=== PATIENT | female | born 1975 | race Caucasian/White ===

== ENCOUNTER 2018-01-02 18:26 | Emergency (ER) | payer OTHER ==
--- NOTE | 2018-01-02 18:46 | ED Physician Documentation ---
PD HPI HEENT - Stated complaint Stated Complaint: LT EAR/FACE PX - History obtained from History obtained from: Patient - History of Present Illness Timing - onset: How many days ago (few days of left face and ear pain, now with some rash on face.) Timing - duration: Days Timing - details: Gradual onset Location: Left ear, Other (left side of face, left side of tongue.) Worsens: Swalllowing, Other (touching) Associated symptoms: Facial swelling. No: Fever, Congestion, Headache Similar symptoms before: Has not had sx before Recently seen: Clinic ( care 2 weeks ago) Review of Systems Constitutional: denies: Fever, Chills Ears: reports: Ear pain Nose: denies: Rhinorrhea / runny nose, Congestion Throat: denies: Sore throat (but is sore on left side of tongue) Cardiac: denies: Chest pain / pressure Respiratory: denies: Dyspnea GI: denies: Nausea, Vomiting Skin: reports: Rash (onface). denies: Lesions PD PAST MEDICAL HISTORY - Past Medical History Cardiovascular: None Respiratory: None Neuro: None - Present Medications Home Medications: Ambulatory Orders Medication Instructions Recorded Confirmed Acyclovir 800 mg PO 5XD #25 tablet 01/02/18 Dexamethasone [Decadron] 4 mg PO DAILY #5 tablet 01/02/18 Gabapentin [Neurontin] 100 mg PO BID #20 capsule 01/02/18 HYDROcod/ACETAM 5/325 [[place] 5/325] 1 tab PO Q6H PRN #15 tablet 01/02/18 Levothyroxine Sodium [Synthroid] 1 tab PO DAILY 01/02/18 01/02/18 Lidocaine Ointment 5% [Xylocaine 1 applic TOP QID #1 tube 01/02/18 Ointment 5%] - Allergies Allergies/Adverse Reactions: Allergies Allergy/AdvReac Type Severity Reaction Status Date / Time No Known Drug Allergies Allergy Verified 01/02/18 18:33 PD ED PE NORMAL - Vitals Vital signs reviewed: Yes - General General: Alert and oriented X 3, No acute distress, Well developed/nourished - HEENT HEENT: Moist mucous membranes, Pharynx benign (but left back side of tongue with some blistering/redness. ). No: Ears normal (TM is normal but canal with few blistered red lesions. Left face with couple small patches of blistered rash. Very tender. C/w Shingles. ) - Neck Neck: Supple, no meningeal sign, No adenopathy Results - Vitals Vitals: Oxygen O2 Source Room air PD MEDICAL DECISION MAKING - ED course Complexity details: considered differential, d/w patient Departure - Departure Disposition: 01 Home, Self Care Clinical Impression: Shingles rash Qualifiers: Herpes zoster complications: without complications Qualified Code(s): B02.9 - Zoster without complications Qualifiers: Weeks of gestation: 34 weeks Qualified Code(s): Z3A.34 - 34 weeks gestation of Condition: Stable Record reviewed to determine appropriate education?: Yes Instructions: ED Shingles Follow-Up: VANESA Parry [Provider Group] Prescriptions: Acyclovir 800 mg PO 5XD #25 tablet Dexamethasone [Decadron] 4 mg PO DAILY #5 tablet Gabapentin [Neurontin] 100 mg PO BID #20 capsule HYDROcod/ACETAM 5/325 [[place] 5/325] 1 tab PO Q6H PRN #15 tablet PRN Reason: Pain Lidocaine Ointment 5% [Xylocaine Ointment 5%] 1 applic TOP QID #1 tube Comments: He can use lidocaine ointment to the facial sores to help topically. Tylenol if needed for pains. Add hydrocodone if needed for worse pain. To decrease the shingles virus and nerve inflammation, take the acyclovir 5 times a day for the next 5 days and Decadron steroid 5 daily for the next 5 days. Also use gabapentin twice daily at a low dose 100 mg to decrease the nerve irritation. Follow-up with your [employer]EL[employer] next week, call for an appointment. I talked with our on-call [employer]ELOPER just to verify the medication plan. Discharge Date/Time: 01/02/18 20:12
[2018-01-02] MEDS ORDERED: ACYCLOVIR 200 MG CAPSULE PO STA (19:11)
[2018-01-02] MEDS ORDERED: GABAPENTIN 100 MG CAPSULE PO STA (19:11)
[2018-01-02] MEDS ORDERED: DEXAMETHASONE 10 MG/ML VIAL PO STA (19:11)
[2018-01-02] MEDS ORDERED: HYDROcod/ACETAM 5/325 MG TABLET PO STA (19:13)
[2018-01-02 20:12] VITALS: BP 105/60
== END 2018-01-02 20:12 | disposition home or self-care (01) ==
LOC: ED 18:26
DX: O26.893 Other specified pregnancy related conditions, third trimester (principal); B02.9 Zoster without complications; Z3A.34 34 weeks gestation of pregnancy
CPT/HCPCS: 87252; 99283; A9270; 81599

== ENCOUNTER 2018-01-05 12:26 | Emergency (ER) | payer OTHER ==
--- NOTE | 2018-01-05 13:58 | ED Physician Documentation ---
PD HPI SKIN - Stated complaint Stated Complaint: RASH ON FACE/35 WKS PREG - Chief complaint Chief Complaint: Wound - History obtained from History obtained from: Patient - History of Present Illness Timing - onset: How many weeks ago (1) Timing - duration: Weeks (1) Timing - details: Still present (has had pain on face for a week and started rash 5 days ago or so, with Dx of shingles in ER. Has been on meds for it and says the pain and rash are still increasing. No feeling of it in eye. Able to drink fluids though tongue hurts.) Review of Systems Constitutional: reports: Myalgias. denies: Fever, Chills Eyes: denies: Photophobia, Discharge, Irritation Ears: reports: Ear pain (left) Nose: denies: Rhinorrhea / runny nose, Congestion Throat: reports: Oral lesions / sores (left side of tongue with sores) Cardiac: denies: Chest pain / pressure, Palpitations Respiratory: denies: Dyspnea, Cough GI: reports: Nausea. denies: Abdominal Pain, Vomiting, Diarrhea : reports: Other (having good movements.). 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 - Present Medications Home Medications: Ambulatory Orders Medication Instructions Recorded Confirmed Acyclovir 800 mg PO 5XD #25 tablet 01/02/18 Dexamethasone [Decadron] 4 mg PO DAILY #5 tablet 01/02/18 Gabapentin [Neurontin] 100 mg PO BID #20 capsule 01/02/18 HYDROcod/ACETAM 5/325 [[place] 5/325] 1 tab PO Q6H PRN #15 tablet 01/02/18 Levothyroxine Sodium [Synthroid] 1 tab PO DAILY 01/02/18 01/02/18 Lidocaine Ointment 5% [Xylocaine 1 applic TOP QID #1 tube 01/02/18 Ointment 5%] HYDROcod/ACETAM 5/325 [[place] 5/325] 1 tab PO Q6H PRN #20 tablet 01/05/18 - Allergies Allergies/Adverse Reactions: Allergies Allergy/AdvReac Type Severity Reaction Status Date / Time No Known Drug Allergies Allergy Verified 01/02/18 18:33 - Social History Does the pt smoke?: No Smoking Status: Never smoker Does the pt drink ETOH?: No Does the pt have substance abuse?: No - Immunizations Immunizations are current?: Yes - POLST Patient has POLST: No PD ED PE NORMAL - Vitals Vital signs reviewed: Yes - General General: Alert and oriented X 3, Well developed/nourished, Other (appears uncomfortable due to face pain.) - HEENT HEENT: Dentition benign, Other (left side of tongue with similar lesions as prior exam. Rest of mouth normal. ) - Neck Neck: Supple, no meningeal sign, No adenopathy - Cardiac Cardiac: RRR, No murmur - Respiratory Respiratory: Clear bilaterally - Abdomen Abdomen: Soft, Non tender, Other (gravid with fundus between umbilicus and xyphoid c/w dates. ) - Derm Derm: Normal color, Warm and dry, Other (shingles rash without signs of secondary infection on left face mandible and cheek but also small patch left eyebrow area. Some tenderness of forehead without rash there. Left ear canal with some lesions. TM is okay. ) - Neuro Neuro: Alert and oriented X 3, papier mache' molder 2-12 intact, No motor deficit, No sensory deficit, Normal speech Eye Opening: Spontaneous Motor: Obeys Commands Verbal: Oriented GCS Score: 15 - Psych Psych: Normal mood Results - Vitals Vitals: Vital Signs - 24 hr 01/05/18 01/05/18 12:35 14:37 Temperature 36.5 C 37.0 C Heart Rate 80 68 Respiratory 20 20 Rate Blood Pressure 127/57 L 100/70 O2 Saturation 98 95 Oxygen O2 Source Room air Departure - Departure Disposition: 01 Home, Self Care Clinical Impression: Qualifiers: Weeks of gestation: 35 weeks Qualified Code(s): Z3A.35 - 35 weeks gestation of Shingles rash Qualifiers: Herpes zoster complications: without complications Qualified Code(s): B02.9 - Zoster without complications Condition: Stable Record reviewed to determine appropriate education?: Yes Instructions: ED Shingles Follow-Up: CATARINO BARNES PA-C [Primary Care Provider] - Prescriptions: HYDROcod/ACETAM 5/325 [[place] 5/325] 1 tab PO Q6H PRN #20 tablet PRN Reason: Pain Comments: You can use the proparacaine numbing drops in the ear periodically if needed. He can use the lidocaine ointment on the face and see if that helps. Continue the other prescriptions for the antiviral and steroid and nerve medication gabapentin. You can increase the frequency of the hydrocodone to every 3-4 hours if needed for pain in the short-term until your follow-up on Friday. If the dose is not adequate you can go to 1-1/2 tablets every 4 hours if needed. Be aware of continued movement as an indication of sedation for the baby. Discharge Date/Time: 01/05/18 14:55
[2018-01-05] MEDS ORDERED: HYDROcod/ACETAM 5/325 MG TABLET PO STA (14:16)
[2018-01-05] MEDS ORDERED: PROPARACAINE 0.5% OPHTH DROPS 15 ML LEFTEYE STA (14:16)
[2018-01-05 14:38] VITALS: BP 100/70
== END 2018-01-05 14:55 | disposition home or self-care (01) ==
LOC: ED 12:26
DX: O26.893 Other specified pregnancy related conditions, third trimester (principal); B02.9 Zoster without complications; Z3A.35 35 weeks gestation of pregnancy
CPT/HCPCS: 99283; A9270; J3490